=== PATIENT | male | born 1990 | race Caucasian/White ===

== ENCOUNTER 2017-07-13 07:17 | Emergency (ER) | payer MEDICAID ==
[~2017-07-13] VITALS: Ht 180.3 cm; Wt 86.0 kg
[~2017-07-13 07:17] MED LIST: CLIN1CAP6 PO; NAPR500 PO
[2017-07-13 07:19] VITALS: BP 142/64; PULSE 100; RESP 16; TEMP 99.8; O2SAT 98
--- NOTE | 2017-07-13 07:36 | PD ---
HPI Chief Complaint: GI Complaint Time Seen by Provider: 07:19 Travel History International Travel<30 days: No Contact w/Intl Traveler<30days: No Traveled to known affect area: No History of Present Illness HPI 27-year-old male presents with nasal congestion, body aches and nonbloody emesis over the past couple of days. He states he was exposed to his child that had similar symptoms but they are better now. He states he try to go to work this morning but threw up and so he came here. He denies any fever, diarrhea, abdominal pain or other concurrent complaints. He feels worse when he moves around. He states he took Motrin yesterday but did not take any today. Quality is nonbloody. Severity is multiple episodes. PFSH Past Medical History Medical History: Denies Significant Hx Asthma: Yes Diminished Hearing: No Respiratory: Yes Immunizations Current: Yes Tetanus Vaccination: < 5 Years Influenza Vaccination: No Past Surgical History Surgical History: No Previous Surgery Social History Alcohol Use: No (DENIES) Tobacco Use: No (DENIES) Substance Use: No (Marijuana daily (denies)) Allergies-Medications (Allergen,Severity, Reaction): Coded Allergies: cat dander (Unverified Allergy, Severe, Shortness of Breath, 07/13/17) penicillin G (Unverified Allergy, Intermediate, rash, 07/13/17) iodine (Unverified Allergy, Unknown, SWELLING, 07/13/17) potassium iodide (Unverified Allergy, Unknown, SWELLING, 07/13/17) povidone-iodine (Unverified Allergy, Unknown, SWELLING, 07/13/17) sodium iodide (Unverified Allergy, Unknown, SWELLING, 07/13/17) sodium iodide (Unverified Allergy, Unknown, SWELLING, 07/13/17) Reported Meds & Prescriptions Reported Meds & Active Scripts Active Zofran Odt (Ondansetron Odt) 4 Mg Tab 4 Mg SL Q6HR PRN Review of Systems Except as stated in HPI: all other systems reviewed are Neg Physical Exam Narrative GENERAL: Well-nourished, well-developed patient. Well-appearing SKIN: Warm and dry. HEAD: Normocephalic and atraumatic. EYES: No injection or drainage. ENT: No nasal drainage noted. Posterior oropharynx without exudate or erythema NECK: Supple, trachea midline. No meningeal signs CARDIOVASCULAR: Regular rate and rhythm RESPIRATORY: Breath sounds equal bilaterally. No accessory muscle use. GASTROINTESTINAL: Abdomen soft, non-tender, nondistended. EXTREMITIES: No edema. BACK: Nontender without obvious deformity. NEUROLOGICAL: Awake and alert. Motor and sensory grossly within normal limits. Normal speech. Data Data Last Documented VS Vital Signs Date Time Temp Pulse Resp B/P (MAP) Pulse Ox O2 Delivery O2 Flow Rate FiO2 07/13/17 07:32 (90) 07/13/17 07:19 99.8 100 16 98 Room Air Orders Orders Ondansetron Odt (Zofran Odt) (07/13/17 07:45) Oral Rehydration (07/13/17 07:31) Ed Discharge Order (07/13/17 08:30) [facility] Medical Decision Making Medical Screen Exam Complete: Yes Emergency Medical Condition: Yes Medical Record Reviewed: Yes (past history confirmed) Differential Diagnosis Gastroenteritis, upper respiratory infection, asthma Narrative Course Patient has no abdominal pain and abdominal exam is benign. Vitals are stable here. Temp here is 99.8. Patient agrees to supportive care. We'll give Zofran here and orally hydrate. If can tolerate liquids Will send home with Zofran. Patient is in agreement to this plan no emesis here, tolerated oral hydration, repeat abdominal exam is benign, Patient denies any new complaints, all questions answered. Patient knows that follow up is incumbent on them and to return to the emergency room immediately if new or worsening symptoms develop. Patient given strict return precautions, vitals reviewed and are normal, agrees to further workup as an outpatient. Diagnosis Primary Impression: Vomiting Qualified Codes: R11.2 - Nausea with vomiting, unspecified Additional Impression: Upper respiratory infection Qualified Codes: J06.9 - Acute upper respiratory infection, unspecified Patient Instructions: General Instructions Additional Instructions: return as needed, zofran as needed for nausea, tylenol as needed for pain, follow with primary sunday Med/Other Pt SpecificInfo: Prescription(s) given Scripts Ondansetron Odt (Zofran Odt) 4 Mg Tab 4 MG SL Q6HR Y for Nausea/Vomiting, #10 TAB 0 Refills Prov: Angie Sy MD 07/13/17 Disposition: 01 DISCHARGE HOME Condition: Stable Angie Sy MD Jul 13, 2017 07:36
[2017-07-13] MEDS ORDERED: ONDANSETRON ODT 4 MG TAB PO ONE (07:45)
[2017-07-13] MEDS ORDERED: ZOFR4TAB3 SL (08:27)
== END 2017-07-13 08:34 | disposition home or self-care (01) ==
LOC: PHED 07:17
DX: R11.10 Vomiting, unspecified (principal); J06.9 Acute upper respiratory infection, unspecified; J45.909 Unspecified asthma, uncomplicated; Z88.0 Allergy status to penicillin; Z88.8 Allergy status to other drugs, medicaments and biological substances
CPT/HCPCS: 99283

== ENCOUNTER 2017-09-27 03:56 | Emergency (ER) | payer MEDICAID, OTHER ==
[~2017-09-27 03:56] MED LIST changes: -CLIN1CAP6 PO; -NAPR500 PO; +ZOFR4TAB3 SL
[2017-09-27 04:01] VITALS: BP 130/70; PULSE 84; RESP 15; TEMP 97.8; O2SAT 95
--- NOTE | 2017-09-27 04:31 | PD ---
HPI Chief Complaint: Cold / Flu Symptoms Time Seen by Provider: 04:17 Travel History International Travel<30 days: No Contact w/Intl Traveler<30days: No Traveled to known affect area: No History of Present Illness HPI The patient is a 27-year-old male there is had a cough, nasal congestion since yesterday morning. He has had nausea with vomiting but no diarrhea. He denies any fever. He does have a history of asthma and had some wheezing tonight. He does not smoke. He does have a nebulizer machine at home. PFSH Past Medical History Asthma: Yes Diminished Hearing: No Respiratory: Yes Immunizations Current: Yes Influenza Vaccination: No ?: Not Past Surgical History Surgical History: No Previous Surgery Body Medical Devices: RECENTLY TX FOR RIGHT EYE REDNESS, STILL RED. Social History Tobacco Use: No (DENIES) Substance Use: No (MARIJUANA DAILY) Allergies-Medications (Allergen,Severity, Reaction): Coded Allergies: cat dander (Verified Allergy, Severe, Shortness of Breath, 09/27/17) penicillin G (Verified Allergy, Intermediate, rash, 09/27/17) iodine (Verified Allergy, Unknown, SWELLING, 09/27/17) potassium iodide (Verified Allergy, Unknown, SWELLING, 09/27/17) povidone-iodine (Verified Allergy, Unknown, SWELLING, 09/27/17) sodium iodide (Verified Allergy, Unknown, SWELLING, 09/27/17) sodium iodide (Verified Allergy, Unknown, SWELLING, 09/27/17) Reported Meds & Prescriptions Reported Meds & Active Scripts Active Reported Tessalon Perles (Benzonatate) 100 Mg Cap 100 Mg PO TID PRN Tylenol Cold & Flu Severe Cplt (Phenylephrine/Dm/Acetaminop/GG) 5 Mg-10 Mg-325 Mg-200 Mg Tablet Review of Systems Except as stated in HPI: all other systems reviewed are Neg Physical Exam Narrative GENERAL: The patient is alert, well oriented 3 in no respiratory distress. His vital signs are normal. SKIN: Focused skin assessment warm/dry. HEAD: Atraumatic. Normocephalic. EYES: Pupils equal and round. No scleral icterus. No injection or drainage. ENT: No nasal bleeding or discharge. Mucous membranes pink and moist. NECK: Trachea midline. No JVD. CARDIOVASCULAR: Regular rate and rhythm. No murmur appreciated. RESPIRATORY: No accessory muscle use. A few widely scattered wheezes are heard in all lung daily. Breath sounds equal bilaterally. GASTROINTESTINAL: Abdomen soft, non-tender, nondistended. Hepatic and splenic margins not palpable. MUSCULOSKELETAL: No obvious deformities. No clubbing. No cyanosis. No edema. NEUROLOGICAL: Awake and alert. No obvious cranial nerve deficits. Motor grossly within normal limits. Normal speech. PSYCHIATRIC: Appropriate mood and affect; insight and judgment normal. Data Data Last Documented VS Vital Signs Date Time Temp Pulse Resp B/P (MAP) Pulse Ox O2 Delivery O2 Flow Rate FiO2 09/27/17 04:01 97.8 84 15 130/70 (90) 95 Orders Orders Influenzae A/B Antigen (09/27/17 04:14) Chest, Pa & Lat (09/27/17 04:29) Albuterol-Ipratropium Neb (Duoneb Neb) (09/27/17 04:30) [facility] Medical Decision Making Medical Screen Exam Complete: Yes Emergency Medical Condition: Yes Medical Record Reviewed: Yes Interpretation(s) The influenza A/B antigen is negative for flu a and flu B antigen. The chest x -ray shows no acute cardiopulmonary disease. Differential Diagnosis Viral upper respiratory infection, pneumonia, bronchitis, influenza Narrative Course The patient appears to have a viral upper respiratory infection. Plan: The patient will be given a prescription for codeine-containing cough syrup. he will need to follow-up with his primary care physician next week. Diagnosis Primary Impression: Viral URI with cough Additional Instructions: As we discussed, do not drink alcohol or drive on the cough syrup. Drink increased liquids and rest and follow-up with your primary care physician next week. Med/Other Pt SpecificInfo: Prescription(s) given Scripts Lyodqioaalsqmlb-Ogyhjiz-Dvnzsionpwc Liq (Guaifenesin DAC Liq) 30-10-100 Mg/5 Ml Soln 10 ML PO Q4H Y for COUGH AND/OR COLD SYMPTOMS, #1 BOTTLE 0 Refills Prov: Douglas Hendrickson MD 09/27/17 Disposition: 01 DISCHARGE HOME Condition: Stable Douglas Hendrickson MD Sep 27, 2017 04:31
[2017-09-27] MEDS ORDERED: BENZ100 PO (04:32)
[2017-09-27] MEDS ORDERED: [UNRECOGNIZED DRUG - CODE] (04:32)
[2017-09-27] MEDS: RESP: ALBUTEROL 2.5 MG/IPRATROPIUM 0.5 MG NEB (SCH) INH (04:39)
--- NOTE | 2017-09-27 05:23 | RADRPT ---
EXAM DATE/TIME: 09/27/2017 05:10 [facility] COMPARISON: CHEST SINGLE AP, May 05, 2016, 4:30. INDICATIONS : Cough, shortness of breath for 2 days MEDICAL HISTORY : Asthma SURGICAL HISTORY : None. ENCOUNTER: Initial ACUITY: 2 days PAIN SCORE: 0/10 LOCATION: Bilateral chest FINDINGS: PA and lateral views of the chest demonstrate a normal-sized cardiac silhouette. There is no effusion , consolidation, or pneumothorax. The bones and soft tissues demonstrate no acute abnormality. CONCLUSION: No acute cardiopulmonary abnormality is identified. Reg Trinh MD on September 27, 2017 at 5:20 Board Certified Radiologist. This report was verified electronically.
[2017-09-27] MEDS ORDERED: GUAISOL PO (05:36)
[2017-09-27 05:53] VITALS: BP 134/78
== END 2017-09-27 05:52 | disposition home or self-care (01) ==
LOC: PHED 03:56
DX: J06.9 Acute upper respiratory infection, unspecified (principal); R05 Cough; B97.89 Other viral agents as the cause of diseases classified elsewhere; J45.909 Unspecified asthma, uncomplicated; Z88.0 Allergy status to penicillin; Z88.8 Allergy status to other drugs, medicaments and biological substances
CPT/HCPCS: 71046; 87804; 94640; 94664; 99284